=== PATIENT | male | born 1945 | race Caucasian/White ===

== ENCOUNTER 2024-09-25 19:49 | Emergency (ER) | payer OTHER, SELFPAY ==
--- NOTE | ~2024-09-25 | CT_ITS ---
EXAMINATION: CT cervical spine wo con DATE: 09/25/2024 21:00 INDICATION: Fall ETOH TECHNIQUE: Computed tomography (CT) of the cervical spine was performed without intravenous contrast. Automated exposure control and iterative reconstruction technique were employed. The dose-length pro duct was 311.20 mGy-cm. COMPARISON: None. FINDINGS: Vertebral Body Alignment: Intact. Craniocervical and atlantoaxial alignment: Moderate degenerative change. Alignment intact. Osseous structures/fracture: No evidence of a lytic or blastic process in the visualized spine. No e vidence of acute fracture. Cervical soft tissues: The paraspinal soft tissues planes are maintained. Biapical pleural scarring. Emphysematous change. Degenerative changes: Degenerative changes, without severe neural foraminal or central canal narrowin g. IMPRESSION: No acute fracture or traumatic malalignment in the cervical spine. Reviewed, dictated and finalized at location K.
--- NOTE | ~2024-09-25 | CT_ITS ---
EXAMINATION: CT brain wo con DATE: 09/25/2024 21:00 INDICATION: Fall, EtOH . TECHNIQUE: Computed tomography (CT) of the head was performed without intravenous contrast. The mA wa s adjusted according to patient size. Iterative reconstruction technique was employed. The dose-lengt h product was 681.00 mGy-cm. COMPARISON: None. FINDINGS: No acute intracranial hemorrhage or extra-axial fluid collection. No hydrocephalus, mass, or herniation. No acute ischemic infarct. Unremarkable dural venous sinus attenuation. No acute osseous abnormality. Small posterior scalp contusion. Nodular mucosal thickening in the bilateral maxillary sinuses, ethmoid mucosal thickening, the remain ing aerated spaces are clear. Biparietal thinning of the parietal bones. Atherosclerotic intracranial calcification. Bilateral lens replacements. IMPRESSION: No acute intracranial process. Reviewed, dictated and finalized at location K.
[2024-09-25 20:01] VITALS: BP 167/98; PULSE 83; RESP 28; TEMP 37; O2SAT 97
--- NOTE | 2024-09-25 20:10 | PC.NURSE ---
Pt attempting to get out of bed, not easily redirectable at times. States he is going to leave. Is unsteady on feet. Yamileth, his friend, arrived stating that she was not taking him home or taking responsibility of pt while intoxicated and that he would need to call his brother, which he is refusing to do. ERP notified of pt's attempts to elope while intoxicated.
--- NOTE | 2024-09-25 20:13 | ED.GENADULT ---
HPI - General Adult General Chief complaint: Wound/Laceration Stated complaint: Fall, +ETOH Time Seen by Provider: 09/25/24 19:54 History of Present Illness HPI narrative: This 79-year-old male presenting for fall after being intoxicated. He was at the [facility] was trying to leave but fell out of his truck. Bystander then called EMS and he was brought to the hospital. Patient states that he has 4 beers. He has a small subcentimeter laceration to the back his scalp. No other injuries. No use of blood thinners. Related Data Allergies Allergy/AdvReac Type Severity Reaction Status Date / Time No Known Allergies Allergy Verified 09/25/24 20:38 Exam Narrative: APPEARANCE: No apparent distress. Head: Subcentimeter non gaping laceration to the scalp not requiring repair EYES: EOMI, NOSE: Atraumatic NECK: Trachea midline RESPIRATORY: No increased rate of breathing, CTAB CARDIOVASCULAR: RRR, +2 pulses in all extremities ABDOMINAL: Non-distended MUSCULOSKELETAl: Head to toe trauma exam did not reveal any significant injuries outside of the scalp injury a minor abrasion left shoulder NEURO: Alert. Moving 4/4 extremities SKIN:: Warm, dry. Normal color PSYCHIATRIC: Normal affect Course Vital Signs Vital signs: Vital Signs Temperature 98.6 F 09/25/24 20:01 Pulse Rate 83 09/25/24 20:01 Respiratory Rate 28 H 09/25/24 20:01 Blood Pressure 167/98 H 09/25/24 20:01 Pulse Oximetry 97 09/25/24 20:01 Oxygen Delivery Room Air 09/25/24 20:01 Temperature 98.6 F 09/25/24 20:01 Pulse Rate 83 09/25/24 20:01 Respiratory Rate 28 H 09/25/24 20:01 Blood Pressure 167/98 H 09/25/24 20:01 Pulse Oximetry 97 09/25/24 20:01 Oxygen Delivery Room Air 09/25/24 20:01 Medical Decision Making MDM Narrative Medical decision making narrative: -Course: 79-year-old presenting intoxicated. Small subcentimeter laceration of scalp not requiring repair. CT brain and C-spine negative for acute traumatic injury. Patient had received Haldol as he continued to get out of bed repeatedly and was a fall risk. He was then monitored until sober and discharged. -DDX includes but is not limited to: ICH, EtOH, hypoglycemia -RX Vital Signs Vital Signs: Vital Signs Temperature 98.6 F 09/25/24 20:01 Pulse Rate 83 09/25/24 20:01 Respiratory Rate 28 H 09/25/24 20:01 Blood Pressure 167/98 H 09/25/24 20:01 Pulse Oximetry 97 09/25/24 20:01 Oxygen Delivery Room Air 09/25/24 20:01 Temperature 98.6 F 09/25/24 20:01 Pulse Rate 83 09/25/24 20:01 Respiratory Rate 28 H 09/25/24 20:01 Blood Pressure 167/98 H 09/25/24 20:01 Pulse Oximetry 97 09/25/24 20:01 Oxygen Delivery Room Air 09/25/24 20:01 Lab Data Labs: Lab Results 09/25/24 Range/Units 19:55 POC Capillary Glucose 118 H (65-105) mg/dl Ethyl Alcohol 259 (<10) mg/dL Discharge Plan Discharge Clinical Impression: Elevated ETOH level, Laceration of scalp Patient Disposition: Home Condition: Stable Instructions: Antibiotic Form, Laceration (ED) Additional Instructions: Please drink responsibly. Please return if you develop signs of infection on your scalp. Patient Language: Chinese Restraint Face to Face Eval. Evaluation Findings Date/Time of evaluation:: 09/25/24 21:25 Pt's immediate situation:: Patient is intoxicated, unsteady on his feet and is a fall risk. He is continuously getting up from bed despite frequent redirection. Given Haldol for safety of patient and staff Pt's reaction to intervention:: Calmed down. Pt's med/behavioral condition:: Alcohol intoxication Restraint or Seclusion Need Need to continue or terminate:: one time dose
[2024-09-25] MEDS: HALOPERIDOL LACTATE 5 MG/ML VIAL IM (20:37)
--- NOTE | 2024-09-25 21:25 | PC.NURSE ---
Pt refusing Tdap, per pt was vax last sky
[2024-09-26 03:52] VITALS: BP 135/74; PULSE 79; RESP 18; TEMP 36.9; O2SAT 98
--- OUTSIDE RECORDS SUMMARY | 2024-09-26 03:57 | XMS_ITS | Continuity of Care Document ---
Author Name [facility] Organization [facility] Care Team Providers Care Project Manager Process Development Name Role Phone [facility] Unavailable Unavailable Problems Combined list of problems from Department of Defense and Veterans Affairs facilities. It does not include entries that were removed or entered in error. 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 [facility] Depression * (ICD-9-CM 300.4/311.) Active Condition [facility] FEVER Active Condition [facility] Hand, pain Active Condition [facility] Hernia, Inguinal, Bialteral Active Condition [facility] Internal inguinal hernia (SNOMED CT 76028470) Active Condition [facility] Malnutrition of moderate degree (Garcia: 60 percent to less than 75 percent of standard weight) Active Condition [facility] Tinea Unguium * (ICD-9-CM 110.1) Active Condition 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 Medications Combined list of outpatient medications from Department of Defense and Veterans Affairs facilities.Medications provided include 1) outpatient medications from the last 15 months, and 2) patient-reported medications. Medication Details Route Status Patient Instructions Prescription Expires Prescription Number Last Dispense Date Ordering Provider Order Date Order Qty Source DICLOFENAC NA 1% GEL,TOP APPLY 4 GM TO AFFECTED AREA(S) FOUR TIMES A DAY NO MORE THAN 16 GM/DAY TO ANY LOWER EXTREMIT Y JOINT. NO MORE THAN 8 GM/DAY TO ANY UPPER EXTREMIT Y JOINT. MAX 32GM/DAY OVER ALL JOINTS.( MEASURE DOSE WITH RULER INSIDE BOX) TOPICA L ACTIVE 07/04/2025 [id number] AVELINOIN ELIJAH D 2024 100 [facility] DICLOFENAC NA 1% GEL,TOP APPLY 4 GM TO AFFECTED AREA(S) FOUR TIMES A DAY NO MORE THAN 16 GM/DAY TO ANY LOWER EXTREMIT Y JOINT. NO MORE THAN 8 GM/DAY TO ANY UPPER EXTREMIT Y JOINT. MAX 32GM/DAY OVER ALL JOINTS.( MEASURE DOSE WITH RULER INSIDE BOX) TOPICA L DISCONT INUED 01/30/2025 [id number] 5 AVELINOIN ELIJAH D 2023 100 [facility] ENSURE PLUS LIQUID CHOCOLATE TAKE 1 CANFUL BY MOUTH TWICE A DAY FOR NUTRITIO N/DIETAR Y SUPPLEME NTATION ORAL ACTIVE 07/13/2025 [id number] 5 RILEY SAAVEDRA 2024 48 [facility] ENSURE PLUS LIQUID CHOCOLATE TAKE 1 CANFUL BY MOUTH TWICE A DAY ORAL DISCONT INUED BY PROVIDE R 04/20/2025 [id number] 5 RILEY SAAVEDRA 2024 48 [facility] ENSURE PLUS LIQUID CHOCOLATE TAKE 1 CANFUL BY MOUTH TWICE A DAY FOR NUTRITIO N/DIETAR Y SUPPLEME NTATION ORAL DISCONT INUED BY PROVIDE R 12/29/2024 [id number] 5 ELI SAAVEDRACyndee Ruiz 2023 48 [facility] ENSURE PLUS LIQUID CHOCOLATE TAKE 1 CANFUL BY MOUTH TWICE A DAY ORAL DISCONT INUED BY PROVIDE R 09/29/2024 [id number] 4 ELI SAAVEDRACyndee Riuz 2023 48 [facility] ENSURE PLUS LIQUID CHOCOLATE TAKE 1 CANFUL BY MOUTH TWICE A DAY FOR NUTRITIO N/DIETAR Y SUPPLEME NTATION ORAL DISCONT INUED 07/07/2024 [id number] 4 SAMSONSWETA ELI CotterCyndee Ruiz 2023 48 [facility] ENSURE PLUS LIQUID CHOCOLATE TAKE 1 CANFUL BY MOUTH TWICE A DAY FOR NUTRITIO N/DIETAR Y SUPPLEME NTATION ORAL DISCONT INUED BY PROVIDE R 04/27/2024 [id number] 4 VAELINO,IN GRID D 2023 48 [facility] Immunizations Combined list of available immunizations from the Department of Defense and Veterans Affairs facilities. Immunization Series Date Given Administered By Site Reaction Lot Number CVX Code Drug Private Tutor Status Comments Source TDAP 2014 115 complet ed Right Deltoid [facility] PNEUMOCOCCAL, UNSPECIFIED FORMULATION 2010 109 complet ed [facility] INFLUENZA, UNSPECIFIED FORMULATION 2007 88 complet ed [facility] INFLUENZA, UNSPECIFIED FORMULATION 2006 88 complet ed [facility] INFLUENZA, UNSPECIFIED FORMULATION 2005 88 complet ed [facility] HEP A, ADULT 2004 OLU REDMAN 52 complet ed [facility] HEP B, ADULT 2004 OLU REDMAN 43 complet ed [facility] OUTSIDE FLU SHOT (HISTORICAL) 2004 88 complet ed [facility] HEP B, ADULT 2004 OLU REDMAN 43 complet ed [facility] HEP A, ADULT 2004 OLU REDMAN 52 complet ed [facility] HEP B, ADULT 2004 OLU REDMAN 43 complet ed [facility] TD(ADULT) UNSPECIFIED FORMULATION 2004 139 complet ed [facility] Results Combined list of recent chemistry, hematology and other laboratory results from Department of Defense and Veterans Affairs, ranging from 15 months to all on record, depending upon the facility. Order Name Results Value Reference Range Date Interpretation Specimen Comments Source LIPID PANEL (STL) CHOLESTEROL [MASS/VOLUME ] IN SERUM OR PLASMA 158 mg/dL 0 - 200 07/03 Specimen Type: PLASMA Comment: No hemolysis noted. Ordering Provider: DAVE YOU RID Report Released Date/Time: July 03, 2024 11:37 AM Reporting Lab: [facility] [address] [facility] [address] Performing Lab: [facility] [address] [facility] [address] [facility] LIPID PANEL (STL) TRIGLYCERIDE [MASS/VOLUME ] IN SERUM OR PLASMA 56 mg/dL 0 - 150 07/03 Specimen Type: PLASMA Comment: No hemolysis noted. Ordering Provider: DAVE YOU RID Report Released Date/Time: July 03, 2024 11:37 AM Reporting Lab: [facility] [address] [facility] [address] Performing Lab: [facility] [address] [facility] [address] [facility] LIPID PANEL (STL) CHOLESTEROL IN LDL [MASS/VOLUME ] IN SERUM OR PLASMA BY CALCULATION 82 mg/dL 07/03 Specimen Type: PLASMA Comment: No hemolysis noted. Ordering Provider: DAVE YOU RID Report Released Date/Time: July 03, 2024 11:37 AM Reporting Lab: [facility] [address] [facility] [address] Performing Lab: [facility] [address] [facility] [address] [facility] LIPID PANEL (STL) CHOLESTEROL IN HDL [MASS/VOLUME ] IN SERUM OR PLASMA 65 mg/dL 40 07/03 Specimen Type: PLASMA Comment: No hemolysis noted. Ordering Provider: DAVE YOU RID Report Released Date/Time: July 03, 2024 11:37 AM Reporting Lab: [facility] [address] [facility] [address] Performing Lab: [facility] [address] [facility] [address] [facility] HGA1C HEMOGLOBIN A1C/HEMOGLOB IN.TOTAL IN BLOOD 5.9 4.0 - 6.0 07/03 Specimen Type: BLOOD No comment entered. Ordering Provider: DAVE YOU RID Report Released Date/Time: July 03, 2024 11:37 AM Reporting Lab: [facility] [address] [facility] [address] Performing Lab: [facility] [address] [facility] [address] [facility] VITAMIN D, 25-HYDROXY 25-HYDROXYVI TAMIN D3 [MASS/VOLUME ] IN SERUM OR PLASMA 31.3 ng/mL 30 - 96 07/03 Specimen Type: SERUM No comment entered. Ordering Provider: DAVE YOU RID Report Released Date/Time: July 03, 2024 11:37 AM Reporting Lab: [facility] [address] [facility] [address] Performing Lab: [facility] [address] [facility] [address] [facility] TSH W/ REFLEX FT4 (STL) THYROTROPIN [UNITS/VOLUM E] IN SERUM OR PLASMA 1.418 u[IU]/ mL 0.47 - 5 07/03 Specimen Type: PLASMA No comment entered. Ordering Provider: DAVE YOU RID Report Released Date/Time: July 03, 2024 11:37 AM Reporting Lab: [facility] [address] [facility] [address] Performing Lab: [facility] [address] [facility] [address] [facility] GGT GAMMA-GT GAMMA GLUTAMYL TRANSFERASE [ENZYMATIC ACTIVITY/VOL UME] IN SERUM OR PLASMA 25 [IU]/L 12 - 64 07/03 Specimen Type: PLASMA Comment: No hemolysis noted. Ordering Provider: DAVE YOU RID Report Released Date/Time: July 03, 2024 11:39 AM Reporting Lab: [facility] [address] [facility] [address] Performing Lab: [facility] [address] [facility] [address] [facility] COMPREHENSI VE METABOLIC PANEL CREATININE [MASS/VOLUME ] IN SERUM OR PLASMA 0.80 mg/dL 0.7 - 1.3 07/03 Specimen Type: PLASMA Comment: No hemolysis noted. Ordering Provider: DAVE YOU RID Report Released Date/Time: July 03, 2024 11:37 AM Reporting Lab: [facility] [address] [facility] [address] Performing Lab: [facility] [address] [facility] [address] [facility] COMPREHENSI VE METABOLIC PANEL UREA NITROGEN [MASS/VOLUME ] IN SERUM OR PLASMA 11.5 mg/dL 9.0 - 25.0 07/03 Specimen Type: PLASMA Comment: No hemolysis noted. Ordering Provider: DAVE YOU RID Report Released Date/Time: July 03, 2024 11:37 AM Reporting Lab: [facility] [address] [facility] [address] Performing Lab: [facility] [address] [facility] [address] [facility] COMPREHENSI VE METABOLIC PANEL GLUCOSE [MASS/VOLUME ] IN SERUM OR PLASMA 91 mg/dL 72 - 99 07/03 Specimen Type: PLASMA Comment: No hemolysis noted. Ordering Provider: DAVE YOU RID Report Released Date/Time: July 03, 2024 11:37 AM Reporting Lab: [facility] [address] [facility] [address] Performing Lab: [facility] [address] [facility] [address] [facility] COMPREHENSI VE METABOLIC PANEL SODIUM [MOLES/VOLUM E] IN SERUM OR PLASMA 138 meq/L 136 - 145 07/03 Specimen Type: PLASMA Comment: No hemolysis noted. Ordering Provider: DAVE YOU RID Report Released Date/Time: July 03, 2024 11:37 AM Reporting Lab: [facility] [address] [facility] [address] Performing Lab: [facility] [address] [facility] [address] [facility] COMPREHENSI VE METABOLIC PANEL POTASSIUM [MOLES/VOLUM E] IN SERUM OR PLASMA 4.1 meq/L 3.5 - 5 07/03 Specimen Type: PLASMA Comment: No hemolysis noted. Ordering Provider: DAVE YOU RID Report Released Date/Time: July 03, 2024 11:37 AM Reporting Lab: [facility] [address] [facility] [address] Performing Lab: [facility] [address] [facility] [address] [facility] COMPREHENSI VE METABOLIC PANEL CHLORIDE [MOLES/VOLUM E] IN SERUM OR PLASMA 104 meq/L 98 - 107 07/03 Specimen Type: PLASMA Comment: No hemolysis noted. Ordering Provider: DAVE YOU RID Report Released Date/Time: July 03, 2024 11:37 AM Reporting Lab: [facility] [address] [facility] [address] Performing Lab: [facility] [address] [place] [phone] [facility] COMPREHENSI VE METABOLIC PANEL CARBON DIOXIDE, TOTAL [MOLES/VOLUM E] IN SERUM OR PLASMA 25 meq/L 22 - 31 07/03 Specimen Type: PLASMA Comment: No hemolysis noted. Ordering Provider: DAVE YOU RID Report Released Date/Time: July 03, 2024 11:37 AM Reporting Lab: [facility] [address] [facility] [address] Performing Lab: [facility] [address] [facility] [address] [facility] COMPREHENSI VE METABOLIC PANEL CALCIUM [MASS/VOLUME ] IN SERUM OR PLASMA 9.4 mg/dL 8.4 - 10.4 07/03 Specimen Type: PLASMA Comment: No hemolysis noted. Ordering Provider: DAVE YOU RID Report Released Date/Time: July 03, 2024 11:37 AM Reporting Lab: [facility] [address] [facility] [address] Performing Lab: [facility] [address] [facility] [address] [facility] COMPREHENSI VE METABOLIC PANEL PROTEIN [MASS/VOLUME ] IN SERUM OR PLASMA 8.0 g/dL 6 - 8.6 07/03 Specimen Type: PLASMA Comment: No hemolysis noted. Ordering Provider: DAVE YOU RID Report Released Date/Time: July 03, 2024 11:37 AM Reporting Lab: [facility] [address] [facility] [address] Performing Lab: [facility] [address] [facility] [address] [facility] COMPREHENSI VE METABOLIC PANEL ALBUMIN [MASS/VOLUME ] IN SERUM OR PLASMA 4.4 g/dL 3.4 - 5 07/03 Specimen Type: PLASMA Comment: No hemolysis noted. Ordering Provider: DAVE YOU RID Report Released Date/Time: July 03, 2024 11:37 AM Reporting Lab: [facility] [address] [facility] [address] Performing Lab: [facility] [address] [facility] [address] [facility] COMPREHENSI VE METABOLIC PANEL BILIRUBIN.TO GLENDY [MASS/VOLUME ] IN SERUM OR PLASMA 0.7 mg/dL 0.2 - 1.2 07/03 Specimen Type: PLASMA Comment: No hemolysis noted. Ordering Provider: DAVE YOU RID Report Released Date/Time: July 03, 2024 11:37 AM Reporting Lab: [facility] [address] [facility] [address] Performing Lab: [facility] [address] [facility] [address] [facility] COMPREHENSI VE METABOLIC PANEL ALKALINE PHOSPHATASE [ENZYMATIC ACTIVITY/VOL UME] IN SERUM OR PLASMA 74 U/L 40 - 150 07/03 Specimen Type: PLASMA Comment: No hemolysis noted. Ordering Provider: DAVE YOU RID Report Released Date/Time: July 03, 2024 11:37 AM Reporting Lab: [facility] [address] [facility] [address] Performing Lab: [facility] [address] [facility] [phone] [place] [address] COMPREHENSI VE METABOLIC PANEL ASPARTATE AMINOTRANSFE RASE [ENZYMATIC ACTIVITY/VOL UME] IN SERUM OR PLASMA 48 U/L 5 - 34 07/03 H Specimen Type: PLASMA Comment: No hemolysis noted. Ordering Provider: DAVE YOU RID Report Released Date/Time: July 03, 2024 11:37 AM Reporting Lab: [facility] [address] [facility] [address] Performing Lab: [facility] [address] [facility] [address] [facility] COMPREHENSI VE METABOLIC PANEL ALANINE AMINOTRANSFE RASE [ENZYMATIC ACTIVITY/VOL UME] IN SERUM OR PLASMA 14 U/L 8 - 40 07/03 Specimen Type: PLASMA Comment: No hemolysis noted. Ordering Provider: DAVE YOU RID Report Released Date/Time: July 03, 2024 11:37 AM Reporting Lab: [facility] [address] [facility] [address] Performing Lab: [facility] [address] [facility] [address] [facility] COMPREHENSI VE METABOLIC PANEL GLOMERULAR FILTRATION RATE/1.73 SQ M.PREDICTED [VOLUME RATE/AREA] IN SERUM, PLASMA OR BLOOD BY CREATININE-B ASED FORMULA (CKD-EPI 2020) 90.6 60 07/03 Specimen Type: PLASMA Comment: No hemolysis noted. Ordering Provider: DAVE YOU RID Report Released Date/Time: July 03, 2024 11:37 AM Reporting Lab: [address] [address] Performing Lab: [address] [phone] [place] [address] CBC LEUKOCYTES [#/VOLUME] IN BLOOD BY AUTOMATED COUNT 4.6 10*3/u L 3.6 - 11.2 07/03 Specimen Type: BLOOD No comment entered. Ordering Provider: DAVE YOU RID Report Released Date/Time: July 03, 2024 11:37 AM Reporting Lab: [address] [address] Performing Lab: [address] [address] [facility] CBC ERYTHROCYTES [#/VOLUME] IN BLOOD BY AUTOMATED COUNT 4.28 10*6/u L 4.10 - 5.70 07/03 Specimen Type: BLOOD No comment entered. Ordering Provider: DAVE YOU RID Report Released Date/Time: July 03, 2024 11:37 AM Reporting Lab: [address] [address] Performing Lab: [address] [address] [facility] CBC HEMOGLOBIN [MASS/VOLUME ] IN BLOOD 13.3 g/dL 13.1 - 16.8 07/03 Specimen Type: BLOOD No comment entered. Ordering Provider: DAVE YOU RID Report Released Date/Time: July 03, 2024 11:37 AM Reporting Lab: [address] [address] Performing Lab: [address] [address] [facility] CBC HEMATOCRIT [VOLUME FRACTION] OF BLOOD 40.3 38.2 - 48.4 07/03 Specimen Type: BLOOD No comment entered. Ordering Provider: DAVE YOU RID Report Released Date/Time: July 03, 2024 11:37 AM Reporting Lab: [facility] [address] [place] [phone] Performing Lab: [facility] [address] [place] [phone] [place] [address] CBC MCV [ENTITIC VOLUME] BY AUTOMATED COUNT 94.2 fL 80.0 - 100.0 07/03 Specimen Type: BLOOD No comment entered. Ordering Provider: DAVE YOU RID Report Released Date/Time: July 03, 2024 11:37 AM Reporting Lab: [facility] [address] [place] [phone] Performing Lab: [phone] [place] [address] CBC MCH [ENTITIC MASS] BY AUTOMATED COUNT 31.1 pg 27.0 - 34.0 07/03 Specimen Type: BLOOD No comment entered. Ordering Provider: DAVE YOU RID Report Released Date/Time: July 03, 2024 11:37 AM Reporting Lab: [facility] [address] [place] [phone] Performing Lab: [address] [address] [facility] CBC MCHC [MASS/VOLUME ] BY AUTOMATED COUNT 33.0 g/dL 33.0 - 36.0 07/03 Specimen Type: BLOOD No comment entered. Ordering Provider: DAVE YOU RID Report Released Date/Time: July 03, 2024 11:37 AM Reporting Lab: [facility] [address] [place] [phone] Performing Lab: [facility] [address] [place] [phone] [facility] CBC PLATELETS [#/VOLUME] IN BLOOD BY AUTOMATED COUNT 179 10*3/u L 150 - 400 05/07 /2025 Specimen Type: BLOOD No comment entered. Ordering Provider: DAVE YOU RID Report Released Date/Time: July 03, 2024 11:37 AM Reporting Lab: [facility] [address] [facility] [address] Performing Lab: [facility] [address] [facility] [address] [facility] CBC PLATELET MEAN VOLUME [ENTITIC VOLUME] IN BLOOD BY AUTOMATED COUNT 11.1 fL 7.5 - 11.2 07/03 Specimen Type: BLOOD No comment entered. Ordering Provider: DAVE YOU RID Report Released Date/Time: July 03, 2024 11:37 AM Reporting Lab: [facility] [address] [facility] [address] Performing Lab: [facility] [address] [facility] [phone] [place] [address] CBC ERYTHROCYTE DISTRIBUTION WIDTH [RATIO] BY AUTOMATED COUNT 13.9 11.8 - 15.1 07/03 Specimen Type: BLOOD No comment entered. Ordering Provider: DAVE YOU RID Report Released Date/Time: July 03, 2024 11:37 AM Reporting Lab: [facility] [address] [facility] [address] Performing Lab: [facility] [address] [facility] [address] [facility] CBC LYMPHOCYTES/ 100 LEUKOCYTES IN BLOOD BY AUTOMATED COUNT 35 07/03 Specimen Type: BLOOD No comment entered. Ordering Provider: DAVE YOU RID Report Released Date/Time: July 03, 2024 11:37 AM Reporting Lab: [facility] [address] [facility] [address] Performing Lab: [facility] [address] [place] [phone] [facility] CBC MONOCYTES/10 0 LEUKOCYTES IN BLOOD BY AUTOMATED COUNT 12 07/03 Specimen Type: BLOOD No comment entered. Ordering Provider: DAVE YOU RID Report Released Date/Time: July 03, 2024 11:37 AM Reporting Lab: [facility] [address] [facility] [address] Performing Lab: [facility] [address] [facility] [phone] [facility] CBC NEUTROPHILS/ 100 LEUKOCYTES IN BLOOD BY AUTOMATED COUNT 50 07/03 Specimen Type: BLOOD No comment entered. Ordering Provider: DAVE YOU RID Report Released Date/Time: July 03, 2024 11:37 AM Reporting Lab: [facility] [address] [facility] [address] Performing Lab: [facility] [address] [facility] [address] [facility] CBC EOSINOPHILS/ 100 LEUKOCYTES IN BLOOD BY AUTOMATED COUNT 1 07/03 Specimen Type: BLOOD No comment entered. Ordering Provider: DAVE YOU RID Report Released Date/Time: July 03, 2024 11:37 AM Reporting Lab: [facility] [address] [facility] [address] Performing Lab: [facility] [address] [facility] [phone] [place] [address] CBC BASOPHILS/10 0 LEUKOCYTES IN BLOOD BY AUTOMATED COUNT 1 07/03 Specimen Type: BLOOD No comment entered. Ordering Provider: DAVE YOU RID Report Released Date/Time: July 03, 2024 11:37 AM Reporting Lab: [facility] [address] [facility] [address] Performing Lab: [facility] [address] [facility] [address] [facility] CBC LYMPHOCYTES [#/VOLUME] IN BLOOD BY AUTOMATED COUNT 1.62 10*3/u L 0.77 - 4.50 07/03 Specimen Type: BLOOD No comment entered. Ordering Provider: DAVE YOU RID Report Released Date/Time: July 03, 2024 11:37 AM Reporting Lab: [facility] [address] [facility] [address] Performing Lab: [address]. [address] [address] [facility] CBC MONOCYTES [#/VOLUME] IN BLOOD BY AUTOMATED COUNT 0.56 10*3/u L 0.19 - 0.80 07/03 Specimen Type: BLOOD No comment entered. Ordering Provider: DAVE YOU RID Report Released Date/Time: July 03, 2024 11:37 AM Reporting Lab: [address] [id number] Performing Lab: [address] [address] [facility] CBC NEUTROPHILS [#/VOLUME] IN BLOOD BY AUTOMATED COUNT 2.31 10*3/u L 2.10 - 8.00 07/03 Specimen Type: BLOOD No comment entered. Ordering Provider: DAVE YOU RID Report Released Date/Time: July 03, 2024 11:37 AM Reporting Lab: [address] [phone] Performing Lab: [address] [phone] [facility] CBC EOSINOPHILS [#/VOLUME] IN BLOOD BY AUTOMATED COUNT 0.06 10*3/u L 0.00 - 0.60 07/03 Specimen Type: BLOOD No comment entered. Ordering Provider: DAVE YOU RID Report Released Date/Time: July 03, 2024 11:37 AM Reporting Lab: [address] [address] Performing Lab: [address] [phone] [facility] CBC BASOPHILS [#/VOLUME] IN BLOOD BY AUTOMATED COUNT 0.05 10*3/u L 0.00 - 0.20 07/03 Specimen Type: BLOOD No comment entered. Ordering Provider: DAVE YOU RID Report Released Date/Time: July 03, 2024 11:37 AM Reporting Lab: [address] [phone] Performing Lab: [facility] [address] [facility] [phone] [facility] LIPID PANEL (STL) CHOLESTEROL [MASS/VOLUME ] IN SERUM OR PLASMA 163 mg/dL 0 - 200 08/24 Specimen Type: PLASMA Comment: No hemolysis noted. Ordering Provider: DAVE YOU RID Report Released Date/Time: Jul 31, 2023 03:20 PM Reporting Lab: [facility] [address] [place] [phone] Performing Lab: [facility] [address] [place] [phone] [facility] LIPID PANEL (STL) TRIGLYCERIDE [MASS/VOLUME ] IN SERUM OR PLASMA 77 mg/dL 0 - 150 08/24 Specimen Type: PLASMA Comment: No hemolysis noted. Ordering Provider: DAVE YOU RID Report Released Date/Time: Jul 31, 2023 03:20 PM Reporting Lab: [facility] [address] [place] [phone] Performing Lab: [facility] [address] [place] [phone] [facility] LIPID PANEL (STL) CHOLESTEROL IN LDL [MASS/VOLUME ] IN SERUM OR PLASMA BY CALCULATION 99 mg/dL 08/24 Specimen Type: PLASMA Comment: No hemolysis noted. Ordering Provider: DAVE YOU RID Report Released Date/Time: Jul 31, 2023 03:20 PM Reporting Lab: [facility] [address] [place] [phone] Performing Lab: [facility] [address] [place] [phone] [facility] LIPID PANEL (STL) CHOLESTEROL IN HDL [MASS/VOLUME ] IN SERUM OR PLASMA 49 mg/dL 40 08/24 Specimen Type: PLASMA Comment: No hemolysis noted. Ordering Provider: DAVE YOU RID Report Released Date/Time: Jul 31, 2023 03:20 PM Reporting Lab: [facility] [address] [place] [phone] Performing Lab: [facility] [address] [facility] [phone] [place] [address] HGA1C HEMOGLOBIN A1C/HEMOGLOB IN.TOTAL IN BLOOD 6.1 4.0 - 6.0 08/24 H Specimen Type: BLOOD No comment entered. Ordering Provider: DAVE YOU RID Report Released Date/Time: Jul 31, 2023 03:20 PM Reporting Lab: [place] [phone] Performing Lab: [phone] [place] [address] TSH W/ REFLEX FT4 (STL) THYROTROPIN [UNITS/VOLUM E] IN SERUM OR PLASMA 1.488 u[IU]/ mL 0.47 - 5 08/24 Specimen Type: PLASMA Comment: No hemolysis noted. Ordering Provider: DAVE YOU RID Report Released Date/Time: Jul 31, 2023 03:20 PM Reporting Lab: [address] [address] Performing Lab: [address] [phone] [place] [address] Vital Signs Combined list of inpatient and outpatient Vital Signs from Department of Defense and Veterans Affairs, ranging from 12 months to all on record, depending upon the facility. Vital Sign Value Date Comments Source WEIGHT 165.1 07/12/2024 11:46:08 [facility] BMI 22 kg/m2 07/12/2024 11:46:08 [facility] SYSTOLIC BLOOD PRESSURE 127 07/03/2024 11:07:47 [facility] DIASTOLIC BLOOD PRESSURE 72 07/03/2024 11:07:47 [facility] PULSE OXIMETRY 99 07/03/2024 11:07:47 [facility] WEIGHT 165.4 07/03/2024 11:07:47 [facility] BMI 22 kg/m2 07/03/2024 11:07:47 [facility] PAIN 1 07/03/2024 11:07:47 [facility] TEMPERATURE 97.8 07/03/2024 11:07:47 [facility] PULSE 66 07/03/2024 11:07:47 [facility] RESPIRATION 20 07/03/2024 11:07:47 [facility] WEIGHT 163 04/19/2024 11:39:52 [facility] BMI 22 kg/m2 04/19/2024 11:39:52 [facility] SYSTOLIC BLOOD PRESSURE 128 01/30/2024 10:01:00 [facility] DIASTOLIC BLOOD PRESSURE 67 01/30/2024 10:01:00 [facility] PULSE OXIMETRY 99 01/30/2024 10:01:00 [facility] WEIGHT 169.8 01/30/2024 10:01:00 [facility] BMI 23 kg/m2 01/30/2024 10:01:00 [facility] PAIN 1 01/30/2024 10:01:00 [facility] TEMPERATURE 98.2 01/30/2024 10:01:00 [facility] PULSE 74 01/30/2024 10[facility]01:00 [facility] RESPIRATION 20 01/30/2024 10:01:00 [facility] WEIGHT 165 12/29/2023 11:47:16 [facility] BMI 22 kg/m2 12/29/2023 11:47:16 [facility] Encounters Combined list of: 1) Encounters from Department of Veterans Affairs facilities going backup to the last 18 months, not all VA inpatient encounters are included; 2) Encounters from the Department of Defense facilities going backup to 280 months. Location Location Details Encounter Type Encounter Number Reason For Visit Attending Provider ADM Date DC Date Status Disposition Source [facility] Outpatient Encounter [id number] 04/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 DAVE FISHER RID 07/30 [facility] Outpatient Encounter [id number] 07/31 [facility] OFFICE O/P NEW LOW 30 MIN [id number] Diagnos is: ICD-10- CM Z12.2 Encntr screen for maligna nt neoplas m of respira tory organs ANA LILIADEANNA GANDHI 08/21 [facility] Outpatient Encounter [id number] 08/24 [facility] Outpatient Encounter [id number] Diagnos is: ICD-10- CM Z12.2 Encntr screen for maligna nt neoplas m of respira tory organs ANA LILIADEANNA ROXANNA N 08/29 [facility] MED NUTRITION INDIV SUBSEQ [id number] Diagnos is: ICD-10- CM 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 RILEY MALIK 09/28 [facility] Outpatient Encounter [id number] 10/20 [facility] Outpatient Encounter [id number] Diagnos is: ICD-10- CM Z12.2 Encntr screen for maligna nt neoplas m of respira tory organs DEANNA SUNG N 10/24 [facility] OFFICE O/P EST MOD 30 MIN [id number] Diagnos is: ICD-10- CM 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, right eye OANH DUMONT 10/25 [facility] MED NUTRITION INDIV SUBSEQ [id number] Diagnos is: ICD-10- CM 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 [facility] 12/28 [facility] Outpatient Encounter [id number] 01/25 [facility] OFFICE O/P EST LOW 20 MIN [id number] Diagnos is: ICD-10- CM 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 DAVE FISHER RID 01/29 [facility] MED NUTRITION INDIV SUBSEQ [id number] Diagnos is: ICD-10- CM 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 RILEY MALIK C 04/19 [facility] Outpatient Encounter [id number] 05/11 [facility] SYNCH AUDIO-ONLY EST SF 10 [id number] Diagnos is: ICD-10- CM Z12.2 Encntr screen for maligna nt neoplas m of respira tory organs ANA LILIA,DEANNA ROXANNA N 05/14 [facility] N [facility] Outpatient Encounter [id number] 06/27 [facility] N [facility] OFFICE O/P EST MOD 30 MIN [id number] Diagnos is: ICD-10- CM I70.213 [facility] s [facility] extrm w intrmt [place], bi legs AVELINO,ING RID D 07/03 [facility] MED NUTRITION INDIV SUBSEQ [id number] Diagnos is: ICD-10- CM 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 Social History Type Response Date Comment Sourc e Tobacco smoking status NHIS VA-TOBACCO USE EVERY DAY CIGARETTES 07/03/2024 [facility] History of tobacco use PA-TOBACCO NEVER USED OTHER TYPE 07/03/2024 [facility] History of tobacco use VA-TOBACCO USER EVERY DAY 07/25/2023 [facility] History of tobacco use VA-TOBACCO USER EVERY DAY 03/02/2022 [facility] History of tobacco use VA-TOBACCO USER SOME DAYS 01/14/2021 [facility] History of tobacco use VA-TOBACCO USE > 15 LESS THAN 30 YEARS 11/21/2017 [facility] History of tobacco use CURRENT TOBACCO USER 11/22/2016 Alex Ruiz [facility] History of tobacco use CURRENT TOBACCO USER 10/05/2015 [facility] RICHARD Ruiz [facility] History of tobacco use CURRENT [facility]BACCO [facility]ER [facility]18[facility] History of tobacco use QUIT TOBACCO >12 MO and <7 YRS AGO 05/03/2013 [facility] RICHARD [facility] History of tobacco use QUIT TOBACCO >7 YEARS AGO 04/13/2006 [facility] History of tobacco use CURRENT NON-TOBACCO USER-HX OF USE 01/12/2006 [facility] History of tobacco use CURRENT TOBACCO USER 06/15/2005 [facility] History of tobacco use CURRENT TOBACCO USER 07/16/[facility] History of tobacco use CURRENT TOBACCO USER 07[facility]08/2004 [facility] Plan of Care List of future care activities from Department [facility] facilities. Additional future care activities may be listed in the Assessment and Plan section. Date/Time Care Activity Care Activity Detail Facili ty 11/01/2024 AMBULATORY - NONE AMBULATORY - NONE [facility] Advance Directives List of completed, amended, or rescinded Advance Directives on record at [facility] facilities. An actual copy of the Directive is not included. Date Advance Directive Provider Source 09/13/2004 ADVANCE DIRECTIVE PETRA FRANCO [facility]
== END 2024-09-26 03:56 | disposition home or self-care (01) ==
LOC: ANHED 09-26 03:55
PROVIDERS: Emergency Provider Emergency Medicine
DX: S01.01XA Laceration without foreign body of scalp, initial encounter (principal); F10.129 Alcohol abuse with intoxication, unspecified; Y90.8 Blood alcohol level of 240 mg/100 ml or more; W17.89XA Other fall from one level to another, initial encounter
CPT/HCPCS: 36415; 70450; 72125; 82077; 82948; 96372; 99284; J1630